=== PATIENT | male | born 2005 | race Caucasian/White ===

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

== ENCOUNTER → 2025-05-01 | Outpatient (CLI) | payer BC | LOC: M RAD 07:20 | PROVIDERS: ATTEND Family Medicine | DX: R05.8 Other specified cough (principal); J30.89 Other allergic rhinitis; R04.0 Epistaxis; J32.8 Other chronic sinusitis ==

== ENCOUNTER → 2025-06-04 | Outpatient (CLI) | payer BC ==
[~2025-06-04] MED LIST: METHACHOLINE KIT (6 VIAL.NEB PREMIX) INH ONE
== END ==
LOC: M CARPUL 07:41
PROVIDERS: ATTEND Allergy & Immunology Allergy
DX: R05.9 Cough, unspecified (principal)